=== PATIENT | female | born 1995 | race Caucasian/White ===

== ENCOUNTER 2021-06-11 19:46 | Emergency (ER) | payer OTHER, SELFPAY ==
[2021-06-11 20:04] VITALS: BP 116/67; PULSE 84; RESP 15; TEMP 36.8; O2SAT 99; BMI 25.8
--- NOTE | 2021-06-11 20:33 | PC.NURSE ---
MD Allen at bedside w/ US, movement noted, FHR approx 137 per
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
== END 2021-06-11 20:49 | disposition home or self-care (01) ==
LOC: HO.ED 20:44
PROVIDERS: Emergency Provider Internal Medicine
DX: Z04.1 Encounter for examination and observation following transport accident (principal)
CPT/HCPCS: 99283

== ENCOUNTER 2021-08-01 12:31 | Outpatient (REF) | payer OTHER, SELFPAY ==
[2021-08-01 13:04] LABS: Basophils Percent Auto 0.3 % (0-2); Eosinophils Absolute Auto 0.1 X10*3/uL (0.0-0.4); Eosinophils Percent Auto 1.8 % (0-4); Hematocrit 32.1 % (37.0-47.0); Hemoglobin 10.8 g/dl (12.0-16.0); Imm Gran Abs Auto 0.03 X10*3/uL (0.00-0.03); Imm Gran Pct Auto 0.4 % (0.0-0.4); Lymphocytes Absolute Auto 1.7 X10*3/uL (1.2-4.9); Lymphocytes Percent Auto 20.9 % (20-40); MANUAL DIFF FLAG NO; Mean Corpuscular HGB Conc 33.6 g/dl (31.0-35.0); Mean Corpuscular Hemoglobin 32.6 pg (27.0-33.0); Mean Platelet Volume 9.5 fL (9.4-12.3); Monocytes Absolute Auto 0.4 X10*3/uL (0.1-1.2); Monocytes Percent Auto 5.4 % (2-11); Neutrophils Absolute Auto 5.7 x10*3/uL (2.0-8.3); Neutrophils Percent Auto 71.2 % (45-73); Platelet Count 167 X10*3/uL (160-400); Red Blood Count 3.31 X10*6/uL (4.20-5.50); Red Cell Distribution Width 13.5 % (11.0-16.0)
[2021-08-01 14:19] LABS: Folate > 20.0 ng/mL (> or = 4.0); Vitamin B12 335 pg/mL (200-900)
[2021-08-01 14:20] LABS: Alanine Aminotransferase 18 U/L (0-31); Albumin Level 3.5 g/dL (3.5-5.0); Alkaline Phosphatase 77 U/L (39-117); Anion Gap 9 (12-20); Aspartate Amino Transferase 24 U/L (5-31); Bilirubin Total 0.4 mg/dL (0.0-1.0); Blood Urea Nitrogen 7 mg/dL (9-16); Calcium 8.7 mg/dL (8.4-10.2); Carbon Dioxide 25 mmol/L (22-29); Chloride 109 mmol/L (96-108); Estimated Glomerular Filt Rate > 60; Glucose Random 88 mg/dL (60-115); Potassium 3.6 mmol/L (3.3-5.1); Sodium 139 mmol/L (135-145)
[2021-08-01 14:31] LABS: TSH reflex Free T4 0.21 uIU/mL (0.32-4.0)
[2021-08-01 15:31] LABS: Free T4 (Free Thyroxine) 0.78 ng/dL (0.71-1.85)
[2021-08-05 13:16] LABS: Vitamin D 25-OH, D2 <4 ng/mL; Vitamin D 25-OH, D3 34 ng/mL; Vitamin D 25-OH, Total 34 ng/mL (30-100)
== END 2021-08-01 12:32 | disposition home or self-care (01) ==
LOC: HO.LAB 12:31
PROVIDERS: PCP Nurse Practitioner Acute Care; Visit Provider Nurse Practitioner Acute Care
DX: Z76.89 Persons encountering health services in other specified circumstances (principal); Z13.29 Encounter for screening for other suspected endocrine disorder
CPT/HCPCS: 36415; 80053; 82306; 82607; 82746; 84439; 84443; 85025

== ENCOUNTER 2021-11-09 12:35 | Outpatient (REF) | payer OTHER, SELFPAY ==
[2021-11-09 13:06] LABS: MANUAL DIFF FLAG NO
[2021-11-09 13:41] LABS: Basophils Percent Auto 0.5 % (0-2); Eosinophils Absolute Auto 0.1 X10*3/uL (0.0-0.4); Eosinophils Percent Auto 1.4 % (0-4); Hematocrit 38.8 % (37.0-47.0); Hemoglobin 12.5 g/dl (12.0-16.0); Imm Gran Abs Auto 0.01 X10*3/uL (0.00-0.03); Imm Gran Pct Auto 0.2 % (0.0-0.4); Lymphocytes Absolute Auto 1.9 X10*3/uL (1.2-4.9); Lymphocytes Percent Auto 29.5 % (20-40); Mean Corpuscular HGB Conc 32.2 g/dl (31.0-35.0); Mean Corpuscular Hemoglobin 30.1 pg (27.0-33.0); Mean Corpuscular Volume 93.5 fL (80.0-98.0); Mean Platelet Volume 9.9 fL (9.4-12.3); Monocytes Absolute Auto 0.3 X10*3/uL (0.1-1.2); Monocytes Percent Auto 4.3 % (2-11); Neutrophils Absolute Auto 4.1 x10*3/uL (2.0-8.3); Neutrophils Percent Auto 64.1 % (45-73); Platelet Count 206 X10*3/uL (160-400); Red Blood Count 4.15 X10*6/uL (4.20-5.50); Red Cell Distribution Width 11.7 % (11.0-16.0); White Blood Count 6.3 X10*3/uL (4.8-10.8)
[2021-11-09 14:14] LABS: Alanine Aminotransferase 12 U/L (0-31); Albumin Level 4.6 g/dL (3.5-5.0); Alkaline Phosphatase 49 U/L (39-117); Anion Gap 11 (12-20); Aspartate Amino Transferase 14 U/L (5-31); Bilirubin Total 0.3 mg/dL (0.0-1.0); Blood Urea Nitrogen 9 mg/dL (9-16); Calcium 9.6 mg/dL (8.4-10.2); Carbon Dioxide 28 mmol/L (22-29); Chloride 107 mmol/L (96-108); Estimated Glomerular Filt Rate > 60; Glucose Random 100 mg/dL (60-115); Potassium 4.5 mmol/L (3.3-5.1); Sodium 141 mmol/L (135-145); Total Protein 7.3 g/dL (6.5-8.0)
[2021-11-09 14:36] LABS: TSH reflex Free T4 0.38 uIU/mL (0.32-4.0)
[2021-11-10 03:21] LABS: CT PCR NOT DETECTED (Not Detect.); NG PCR NOT DETECTED (Not Detect.)
[2021-11-10 04:24] LABS: HIV AB/AG Nonreactive (Nonreactive); HIV Num 1 0.08 S/CO (0.00-0.99); ~Hepatitis C Antibody Nonreactive (Nonreactive)
[2021-11-10 10:55] LABS: BV Int Neg Control Negative (Negative); BV Int Pos Control Positive (Positive)
[2021-11-17 16:47] LABS: Thyrotropin Receptor Antibody <1.00 IU/L (<=2.00)
== END 2021-11-09 12:36 | disposition home or self-care (01) ==
LOC: HO.LAB 12:35
PROVIDERS: Absent Provider Nurse Practitioner Acute Care; PCP Nurse Practitioner Acute Care; Visit Provider Nurse Practitioner Family
DX: O99.019 Anemia complicating pregnancy, unspecified trimester (principal); D50.9 Iron deficiency anemia, unspecified; R79.89 Other specified abnormal findings of blood chemistry
CPT/HCPCS: 36415; 80053; 83520; 84443; 85025; 86803; 87389; 87480; 87491; 87510; 87591; 87660

== ENCOUNTER 2022-02-14 15:48 | Outpatient (REF) | payer OTHER, SELFPAY ==
[2022-02-14 17:31] LABS: Appearance Urine Clear; Color Urine Yellow; Glucose Urine UA Negative (Negative); Leukocyte Esterase Urine Negative (Negative); Nitrite Urine Negative (Negative); PH 6.5 (5.0-8.0); Urine Blood Negative (Negative); Urine Ketones Negative (Negative); Urine Protein Trace mg/dL (Neg-Trace)
== END 2022-02-14 15:49 | disposition home or self-care (01) ==
LOC: HO.LAB 15:48
PROVIDERS: Visit Provider Physician Assistant
DX: R30.0 Dysuria (principal)
CPT/HCPCS: 81003

== ENCOUNTER 2023-06-12 14:30 | Outpatient (AMB) | payer OTHER, SELFPAY ==
[2023-06-12 15:22] VITALS: BP 112/70
--- NOTE | 2023-06-12 15:22 | MHC.OFFWIV ---
Intake Vital Signs 06/12/23 15:22 Height 5 ft 6 in BP 112/70 Blood Pressure Location Rt brachial Position Sitting Intake Visit Reasons: EST/uti? (lobby) Intake Note: pt is here for c/o possible uti, unable to get oxygen read due to long nails Patient Tobacco Use Status: Never used Tobacco Allergies shrimp [SHRIMP] Allergy (Severe, Verified 11/09/21 12:03) SWELLING shrimp Allergy (Unknown, Uncoded 09/07/21 08:53) Swelling Do you need a note to return to daycare/school/sports/work: Yes HPI HPI Comments History of Present Illness Details Pt has new sexual partner Unprotected intercourse 3 weeks ago Hasnt felt the same Slight dysuria No frequency or urgency + vaginal discharge but feels different than baseline No smell or discoloration No abdominal pain or other complaints PFSH Medical History Iron deficiency anemia during and not yet delivered in third trimester Surgical History History of Hx of cholecystectomy Family History Mother COPD (chronic obstructive pulmonary disease) Active asthma Father Previous back surgery Social History Housing: House Alcohol intake: current Alcohol intake frequency: does not drink Patient Tobacco Use Status: Never used Tobacco e-Cigarette/Vaping Use: Never Used Second Hand Smoke Exposure: No service: No Current occupational status: unemployed Cognitive needs: No Hearing needs: No Vision needs: No Review of Systems Const Denies chills and Denies fever(s) Card Denies chest pain and Denies dyspnea Resp Denies dyspnea GI Denies abdominal pain Reports dysuria (minimum), Denies urinary incontinence, Denies urinary urgency and Reports vaginal discharge Physical Exam Vital Signs: Last Vital Signs BP 112/70 06/12/23 15:22 General: Non-toxic, NAD. Speaking full sentences. Skin: Warm dry throughout Abdominal: Non-tender. BS present. MSK: Full ROM extremities. Neurology: A/O. No aphasia or facial droop. Gait without abnormality Psych: Good mood and affect Results AMB Urinalysis, Automated UA Leukoctes 0 Katarina/uL Last Edit by Gurpreet Conteh CMA on 06/12/23 15:37 UA Nitrite Negative Last Edit by Gurpreet Conteh CMA on 06/12/23 15:37 UA Urobilinogen 0.2 mg/dL Last Edit by Gurpreet Conteh CMA on 06/12/23 15:37 UA Protein 15 mg/dL Last Edit by Gurpreet Conteh CMA on 06/12/23 15:37 UA pH 5.5 Last Edit by Gurpreet Conteh CMA on 06/12/23 15:37 UA Blood 0 Chidi/uL Last Edit by Gurpreet Conteh CMA on 06/12/23 15:37 UA Specific [place] 1.030 Last Edit by Gurpreet Conteh CMA on 06/12/23 15:37 UA Ketone Positive Last Edit by Gurpreet Conteh CMA on 06/12/23 15:37 UA Bilirubin 0 mg/dL Last Edit by Gurpreet Conteh CMA on 06/12/23 15:37 UA Glucose 0 mg/dL Last Edit by Gurpreet Conteh CMA on 06/12/23 15:37 AMB Test Urine AMB Test Urine Negative Last Edit by Gurpreet Conteh CMA on 06/12/23 16:01 Results Reviewed Results Reviewed: Laboratory Last Values Urine pH (Auto) 5.5 06/12/23 15:36 Specific [place] (Auto) 1.030 06/12/23 15:36 Urine Protein (Auto) 15 mg/dL 06/12/23 15:36 Glucose (UA)(Auto) 0 mg/dL 06/12/23 15:36 Urine Ketones (Auto) Positive 06/12/23 15:36 Urine Blood (Auto) 0 Chidi/uL 06/12/23 15:36 Urine Nitrite (Auto) Negative 06/12/23 15:36 Urine Bilirubin (Auto) 0 mg/dL 06/12/23 15:36 Urine Urobilinogen (Auto) 0.2 mg/dL 06/12/23 15:36 Leukocyte Esterase (Auto) 0 Katarina/uL 06/12/23 15:36 Tst Clinic Negative 06/12/23 16:00 Assessment & Plan Assessment & Plan (1) Unprotected sexual intercourse: Code(s): Z72.51 - High risk heterosexual behavior Plan: Urine negative U/a: no leuks or blood or nitrates Swab obtained for r/o BV Pt will come back for GC/chlamydia urine and blood tests tomorrow (had to leave to get child) Orders: Orders Bacterial Vaginosis Panel Today Z72.51 - High risk heterosexual behavior CT NG by PCR Today Z72.51 - High risk heterosexual behavior RPR Monitor reflex titer Today AMB HCG Urine Test Today Z13.9 - Encounter for screening, unspecified AMB Urinalysis Automated Today Z13.9 - Encounter for screening, unspecified AMB HCG Urine Test Today Z72.51 - High risk heterosexual behavior HIV Ab/Ag Today Z72.51 - High risk heterosexual behavior Coding Level of Care Code Est Pt Level 3 (28191) Diagnoses Unprotected sexual intercourse Z72.51
== END 2023-06-12 16:31 | disposition home or self-care (01) ==
PROVIDERS: PCP Nurse Practitioner Family; Visit Provider Physician Assistant
DX: Z72.51 High risk heterosexual behavior (principal)
CPT/HCPCS: 81003; 81025; 99213

== ENCOUNTER 2023-06-12 16:31 | Outpatient (REF) | payer OTHER, SELFPAY ==
[2023-06-14 13:44] LABS: BV Int Neg Control Negative (Negative); BV Int Pos Control Positive (Positive)
== END 2023-06-12 16:32 | disposition home or self-care (01) ==
LOC: HO.LAB 16:31
PROVIDERS: Visit Provider Physician Assistant
DX: Z72.51 High risk heterosexual behavior (principal)
CPT/HCPCS: 87480; 87510; 87660

== ENCOUNTER 2023-06-13 11:39 | Outpatient (REF) | payer OTHER, SELFPAY ==
[2023-06-14 07:43] LABS: HIV AB/AG Nonreactive (Nonreactive); HIV Num 1 0.05 S/CO (0.00-0.99)
[2023-06-14 11:27] LABS: RPR Rapid Plasma Reagin NON-REACTIVE (NON-REACTIVE)
== END 2023-06-13 11:40 | disposition home or self-care (01) ==
LOC: HO.HMGCLDS 11:39
PROVIDERS: Visit Provider Physician Assistant
DX: Z11.4 Encounter for screening for human immunodeficiency virus [HIV] (principal); Z72.51 High risk heterosexual behavior
CPT/HCPCS: 36415; 86592; 87389

== ENCOUNTER 2024-01-21 10:26 | Outpatient (AMB) | payer OTHER, SELFPAY ==
--- NOTE | 2024-01-21 10:27 | A.OFFPC_ITS ---
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 In review of the notes, patient was seen in walk-in clinic 05/2023 underwent STI as well as testing which was negative. Patient states she has been having copius white/monreal malodorous vaginal discharge for two weeks. Has also been having vaginal and uterine cramping for the past two weeks which happen 2-3 daily. She was sexually active two months ago with the same partner and the sex was unprotected. Denies any concern for STIs at this time and last menses was last month. Has also been having pain with urination without burning or increased frequency. Does not regularly see OBGYN. Denies any vaginal bleeding. [facility], LAT[facility] Medical History Iron deficiency anemia during and not yet delivered in third trimester Surgical History History of Hx of cholecystectomy Family History Mother COPD (chronic obstructive pulmonary disease) Active asthma Father Previous back surgery Social History Housing: House Alcohol intake: current Alcohol intake frequency: does not drink Patient Tobacco Use Status: Never used Tobacco e-Cigarette/Vaping Use: Never Used Second Hand Smoke Exposure: No service: No Current occupational status: unemployed Cognitive needs: No Hearing needs: No Vision needs: No Questionnaire Thrive Questionnaire Date Thrive assessed: 07/26/21 AUDIT C Alcohol Use Questionnaire (AUDIT-C) 1. How often do you have a drink containing alcohol?: Never 3. How often do you have six or more drinks on one occasion?: Never Total Score: 0 XOCHITL-7 AMB Questionnaire XOCHITL-7 Date XOCHITL - 7 assessed: 07/26/21 Source: Developed by Drs. Arpan Almodovar, Deirdre Humphries, Tom Baldwin and colleagues, with an educational yunier from [employer]. Review of Systems Const Denies body aches, Denies chills, Denies fever(s), Denies headache(s) and Denies poor appetite Eyes Reports no additional complaints ENT Denies dysphagia, Denies dizziness, Denies headache(s) and Denies odynophagia Card Denies chest pain, Denies syncope, Denies edema, Denies irregular heart rhythm, Denies lightheadedness and Denies dyspnea Resp Denies cough and Denies dyspnea GI Denies abdominal pain, Denies constipation, Denies dysphagia, Denies diarrhea, Denies nausea, Denies odynophagia and Denies vomiting Details: pain and cramping in suprapubic area Denies abnormal vaginal bleeding, Denies hematuria, Reports dyspareunia, Reports dysuria and Reports vaginal discharge (monreal/white with strong odor ) Musc Reports no additional complaints and Denies abnormal gait Skin/Breast Reports system reviewed and no additional complaints, except as documented Neuro Denies abnormal gait, Denies dizziness, Denies syncope and Denies headache(s) Psych Reports no additional complaints Physical exam (Primary Care) Vital Signs: Last Vital Signs Pulse 81 01/21/24 10:28 BP 92/64 01/21/24 10:28 Pulse Ox 98 01/21/24 10:28 Oxygen Delivery Method Room Air 01/21/24 10:28 BMI result Body Mass Index 21.6 Tobacco/Smoking Status: Tobacco use Status Tobacco use date assessed 01/21/24 01/21/24 10:28 Patient Tobacco Use Status Never used Tobacco 01/21/24 10:28 e-Cigarette/Vaping Use Never Used 01/21/24 10:28 Thrive Assessment: Date of Thrive Assessment Date Thrive assessed 07/26/21 01/21/24 10:28 Const General: cooperative, healthy appearing, comfortable and no acute distress Orientation/consciousness: patient oriented x3 HENCA Head: Yes normocephalic Ears: hearing grossly normal bilaterally General nose exam: Normal external nose present Eyes General: appearance normal, both eyes and all related structures Conjunctivae: conjunctivae normal Neck Neck: Yes full ROM and Yes no lymphadenopathy Resp Effort & Inspection: normal respiratory effort Auscultation: clear to auscultation bilaterally, no crackles, no rales, no rhonchi and no wheezes Cardio Rate: regular rate Rhythm: regular rhythm GI Other: pain to palpation over suprapubic area Palpation (GI): Soft to palpation, no guarding, not rigid and no masses General: Yes no CVA tenderness External Female Exam: normal external appearance Speculum Exam - Vagina: abnormal vaginal discharge monreal and no lesions Back/Spine/Pelvis Back: no CVA tenderness Skin General skin exam: no rashes or lesions noted Neuro General: patient oriented x3 Gait exam (Neuro): Normal gait present Extrem General: Yes normal to inspection, Yes full ROM and No edema Psych Affect: normal affect Attitude: cooperative Insight: Good insight present (Psych) Judgement: Good judgement present (Psych) Results AMB Urinalysis, Automated UA Leukoctes 0 Katarina/uL Last Edit by IDANIA Reyez on 01/21/24 11:25 UA Nitrite Negative Last Edit by IDANIA Reyez on 01/21/24 11:25 UA Urobilinogen 0.2 mg/dL Last Edit by IDANIA Reyez on 01/21/24 11:25 UA Protein 15 mg/dL Last Edit by IDANIA Reyez on 01/21/24 11:25 UA pH 7.0 Last Edit by IDANIA Reyez on 01/21/24 11:25 UA Blood 80 Chidi/uL Last Edit by IDANIA Reyez on 01/21/24 11:25 UA Specific [place] 1.015 Last Edit by IDANIA Reyez on 01/21/24 11:25 UA Ketone Negative Last Edit by IDANIA Reyez on 01/21/24 11:25 UA Bilirubin 0 mg/dL Last Edit by IDANIA Reyez on 01/21/24 11:25 UA Glucose 0 mg/dL Last Edit by IDANIA Reyez on 01/21/24 11:25 AMB Test Urine AMB Test Urine Cancelled Last Edit by Breann Morrison CMA on 01/21/24 11:32 AMB Test Urine previously reported as Negative Breann Morrison 01/21/24 11:32 CANCELLED Entered into order. Results Reviewed Results Reviewed: Laboratory Last Values Urine pH (Auto) 7.0 01/21/24 11:13 Specific [place] (Auto) 1.015 01/21/24 11:13 Urine Protein (Auto) 15 mg/dL 01/21/24 11:13 Glucose (UA)(Auto) 0 mg/dL 01/21/24 11:13 Urine Ketones (Auto) Negative 01/21/24 11:13 Urine Blood (Auto) 80 Chidi/uL 01/21/24 11:13 Urine Nitrite (Auto) Negative 01/21/24 11:13 Urine Bilirubin (Auto) 0 mg/dL 01/21/24 11:13 Urine Urobilinogen (Auto) 0.2 mg/dL 01/21/24 11:13 Leukocyte Esterase (Auto) 0 Katarina/uL 01/21/24 11:13 Tst Clinic Negative 01/21/24 11:13 Assessment and Plan Assessment & Plan (1) Vaginal discharge: Code(s): N89.8 - Other specified noninflammatory disorders of vagina Plan: Swab ordered to test for BV, ghonorrhea, Trichomonas and chlamydia. Patient had scant monreal/white discharge visualized on exam today. Given symptoms and physical exam will treat with course of Metronidazole while we wait for swab results. Will call with results and if swab is negative can discontinue treatment. She denies any vaginal bleeding however after self swabbing today patient did have scant blood on swab. (2) Uterine cramping: Code(s): N94.89 - Other specified conditions associated with female genital organs and menstrual cycle Plan: Patient has been having new onset vaginal and uterine cramping with tenderness to palpation over suprapubic area. Patient will be referred to OBGYN to establish care and evaluate cramping. UA and done in office today which were WNL. Pelvic ultrasound ordered. (3) Hematuria: Code(s): R31.9 - Hematuria, unspecified Plan: Patient did have blood on urinalysis today. This may be from cross contamination with vaginal bleeding. Ordered repeat urinalysis to be completed next week to rule out hematuria. Plan This note was constructed using voice recognition software. While every effort has been made to ensure accuracy and french professor, still areas may have been included sometimes these areas may affect the content or meeting of the given symptoms. Total time spent caring for the patient today was 45 minutes. This includes time spent before the visit reviewing the chart, time spent during the visit, and time spent after the visit and documentation. Orders: Orders UA w Microscopic Today R31.9 - Hematuria, unspecified US pelvic complete Today N94.89 - Other specified conditions associated with female genital organs and menstrual cycle Bacterial Vaginosis Panel Today N89.8 - Other specified noninflammatory disorders of vagina Trichomonas vaginalis RNA Today N89.8 - Other specified noninflammatory disorders of vagina CT NG by PCR Today N89.8 - Other specified noninflammatory disorders of vagina AMB Urinalysis Automated Today N94.89 - Other specified conditions associated with female genital organs and menstrual cycle Referrals [employer] Referral N89.8 - Other specified noninflammatory disorders of vagina, N94.89 - Other specified conditions associated with female genital organs and menstrual cycle Medications: New metronidazole 500 mg PO BID 7 days 14 tabs 0RF Coding Level of Care Code Est Pt Level 4 (11077) Diagnoses Vaginal discharge N89.8 Uterine cramping N94.89 Hematuria R31.9
[2024-01-21 10:28] VITALS: BP 92/64; PULSE 81; O2SAT 98; BMI 21.6
== END 2024-01-21 12:06 | disposition home or self-care (01) ==
PROVIDERS: PCP Nurse Practitioner Family
DX: N89.8 Other specified noninflammatory disorders of vagina (principal); N94.89 Other specified conditions associated with female genital organs and menstrual cycle; R31.9 Hematuria, unspecified
CPT/HCPCS: 81003; 99214

== ENCOUNTER 2024-01-21 16:35 | Outpatient (REF) | payer OTHER, SELFPAY ==
[2024-01-22 11:55] LABS: CT PCR NOT DETECTED (Not Detect.); NG PCR NOT DETECTED (Not Detect.)
[2024-01-22 13:31] LABS: Bacterial Vaginosis PCR POSITIVE (Negative); Candida Group PCR NOT DETECTED (Not Detect); Candida glab krusei PCR NOT DETECTED (Not Detect); Trichomonas vaginalis PCR NOT DETECTED (Not Detect)
== END 2024-01-21 16:36 | disposition home or self-care (01) ==
LOC: HO.LNP 16:35
DX: N89.8 Other specified noninflammatory disorders of vagina (principal)
CPT/HCPCS: 0352U; 87491; 87591

== ENCOUNTER 2024-01-21 16:51 | Outpatient (REF) | payer OTHER, SELFPAY | END 2024-01-21 16:52 | disposition home or self-care (01) | LOC: HO.LAB 16:51 | DX: Z13.89 Encounter for screening for other disorder (principal) ==

== ENCOUNTER 2024-02-11 10:17 | Outpatient (AMB) | payer OTHER, SELFPAY ==
[2024-02-11 10:25] VITALS: BP 120/70; BMI 22.3
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
== END 2024-02-11 11:01 | disposition home or self-care (01) ==
LOC: HO.HWSM 10:17
PROVIDERS: PCP Nurse Practitioner Family; Visit Provider Advanced Practice Midwife
DX: Z01.419 Encounter for gynecological examination (general) (routine) without abnormal findings (principal); N89.8 Other specified noninflammatory disorders of vagina; N94.89 Other specified conditions associated with female genital organs and menstrual cycle; Z72.51 High risk heterosexual behavior
CPT/HCPCS: 99385

== ENCOUNTER 2024-02-11 10:17 | Outpatient (REF) | payer OTHER, SELFPAY ==
[2024-02-12 11:38] LABS: CT PCR NOT DETECTED (Not Detect.); NG PCR NOT DETECTED (Not Detect.)
[2024-02-12 11:43] LABS: Bacterial Vaginosis PCR NEGATIVE (Negative); Candida Group PCR DETECTED (Not Detect); Candida glab krusei PCR NOT DETECTED (Not Detect); Trichomonas vaginalis PCR NOT DETECTED (Not Detect)
== END 2024-02-11 10:18 | disposition home or self-care (01) ==
LOC: HO.LAB 10:17
PROVIDERS: PCP Nurse Practitioner Family; Visit Provider Advanced Practice Midwife
DX: N89.8 Other specified noninflammatory disorders of vagina (principal); Z11.2 Encounter for screening for other bacterial diseases; Z72.51 High risk heterosexual behavior; Z94.89 Other transplanted organ and tissue status; Z01.419 Encounter for gynecological examination (general) (routine) without abnormal findings; Z12.4 Encounter for screening for malignant neoplasm of cervix
CPT/HCPCS: 0352U; 36415; 87491; 87591; 87625; 88175; 99385

== ENCOUNTER 2024-02-17 12:45 | Outpatient (REF) | payer OTHER, SELFPAY ==
--- NOTE | ~2024-02-17 | US_ITS ---
EXAMINATION: US PELVIS CLINICAL INFORMATION: Uterine cramping COMPARISON: None available. TECHNIQUE: Ultrasound of the pelvis is performed using both transabdominal and transvaginal transducers along with Doppler. Transvaginal imaging is performed due to inadequate visualization transabdominally. The images were presented to me for review on 04/03/2024. FINDINGS: Uterus: The uterus is anteverted and measures 8.5 x 4.5 x 5.5 cm. The double wall endometrial thickness is 11 mm. The uterus is smooth in contour and has normal myometrial echogenicity. No visible fibroid. Incidental nabothian cysts are seen in the cervix. Adnexa: Both ovaries are visualized. There is normal color flow to the adnexa. There is no ovarian torsion. There is no pelvic ascites or fluid collection. Right ovary measures 3.5 x 2.2 x 2.4 cm, 9.6 mL. A small collapsing follicle measures 1.6 cm in size and does not require follow-up. Left ovary measures 2.9 x 1.8 x 1.7 cm, 4.7 mL. No abnormality demonstrated. US/US pelvic and transvaginal IMPRESSION: Normal pelvic ultrasound. Electronically signed by: Alan Baker MD 04/03/2024 01:43 PM EDT
== END 2024-02-17 12:46 | disposition home or self-care (01) ==
LOC: HO.US 12:45
PROVIDERS: PCP Nurse Practitioner Family
DX: N94.89 Other specified conditions associated with female genital organs and menstrual cycle (principal)
CPT/HCPCS: 76830; 76856

== ENCOUNTER 2024-09-23 10:09 | Outpatient (AMB) | payer OTHER, SELFPAY ==
--- NOTE | 2024-09-23 10:19 | A.OFFPC_ITS ---
Vital Signs 09/23/24 10:21 Height 5 ft 4 in Weight 129 lb 2 oz BMI 22.2 BP 110/60 Blood Pressure Location Lt brachial Position Sitting Pulse 93 Pulse Source Pulse Oximeter Temp 97.3 F Temp Source Temporal Artery Scan Pulse Oximetry (%) 98 Oxygen Delivery Method Room Air Intake Visit Reasons: annual exam Intake Note: Patient is here today for a physical. Requesting for STI testing. Manager Sterile Required: No Wildlife Biostation Research Ecologist: Not Required per policy Accompanied by: Self / Same As Patient Allergies shrimp [SHRIMP] Allergy (Severe, Verified 09/23/24 10:33) SWELLING shrimp Allergy (Unknown, Uncoded 09/23/24 10:33) Swelling Medication List - Last Reconciled 09/23/24 by Marilu Lemons PA-C levonorgestrel 1.5 mg PO ONCE Tobacco use date assessed: 09/23/24 Dental Screening Dental Screen Date: 09/23/24 Did you have a dental visit in the last 12 months?: Yes Did you have a dental problem in the last 6 months where you did not have access to dental care?: No Was dental information given to patient?: Patient has dentist HPI annual exam HPI Details 28-year-old female with past medical his tory of iron-deficiency anemia last seen 12/2023 coming in for annual exam.? Presenting for an annual wellness examination with concerns about potential allergies, vision difficulties, family planning, and STD screening. Utilizes Plan B intermediately, causing alteration in menstrual timing, leading to anxiety and requests for alternative long-term family planning other than standard hormonal contraceptives. STD screening requested due to occasional unprotected intercourse, despite the low frequency of sexual activity, indicating patient interest more in risk avoidance rather than addressing symptomatic concerns. Patient has no acute concerns at this time. [facility] Medical History Iron deficiency anemia during and not yet delivered in third trimester Surgical History History of Hx of cholecystectomy Family History Mother COPD (chronic obstructive pulmonary disease) Active asthma Father Previous back surgery Social History (Reviewed 09/23/24 @ 10:47 by RASHEL Wild Housing: House Alcohol intake: current Alcohol intake frequency: holidays/special occasions only Patient Tobacco Use Status: Never used Tobacco e-Cigarette/Vaping Use: Never Used Second Hand Smoke Exposure: No Substance Use Type: Marijuana service: No Current occupational status: unemployed Cognitive needs: No Hearing needs: No Vision needs: No Female Reproductive History Menstrual Age of Menarche: 16 control method: none Questionnaire PHQ-9 Over the last 2 weeks, how often have you been bothered by any of the following problems? 1. Little interest or pleasure in doing things: not at all 2. Feeling down, depressed, or hopeless: not at all 3. Trouble falling or staying asleep, or sleeping too much: not at all 4. Feeling tired or having little energy: not at all 5. Poor appetite or overeating: not at all 6. Feeling bad about yourself - or that you are a failure or have let yourself or your family down: not at all 7. Trouble concentrating on things, such as reading the newspaper or watching television: not at all 8. Moving or speaking so slowly that other people could have noticed. Or the opposite - being so fidgety or restless that you have been moving around a lot more than usual: not at all 9. Thoughts that you would be better off or of hurting yourself in some way: not at all Total score: 0 Depression Screening Interpretation: Negative Depression Screening Done: Yes Source: Developed by Drs. Arpan Almodovar, Deirdre Humphries, Tom Baldwin and colleagues, with an educational yunier from [employer]. Thrive Questionnaire Date Thrive assessed: 09/23/24 I am a: Patient What is your living situation today?: I have a steady place to live Within the past 12 months, did the food you bought not last and you didn't have the money to get more?: Never true Within the past 12 months, did you worry whether your food would run out before you got money to buy more?: Never true Do you have trouble paying for medicines?: No Do you have trouble getting transportation to medical appointments?: No Do you have trouble paying your heating and electricity bill?: No Do you have trouble taking care of your child, family member or friend?: No Do you have trouble with day-to-day activities such as bathing, preparing meals, shopping, managing finances, etc.?: No Are you currently unemployed and looking for a job?: No Are you interested in more education?: No Please select the resources that you would like help with: None Currently or been in a relationship where the following occur: No concerns reported THRIVE Score: 0 AUDIT C Alcohol Use Questionnaire (AUDIT-C) 1. How often do you have a drink containing alcohol?: Never Total Score: 0 XOCHITL-7 AMB Questionnaire XOCHITL-7 Date XOCHITL - 7 assessed: 09/23/24 Feeling nervous, anxious, or on edge: 3 = Nearly every day Not being able to stop or control worryin = Several days Worrying too much about different things: 1 = Several days Trouble relaxin = Not at all Being so restless that it is hard to sit still: 0 = Not at all Becoming easily annoyed or irritable: 0 = Not at all Feeling afraid as if something awful might happen: 0 = Not at all Total XOCHITL-7 score (0-4 normal; 5-9 mild; 10-14 moderate; 15-21 severe): 5 Source: Developed by Drs. Arpan Almodovar, Deirdre Humphries, Tom Baldwin and colleagues, with an educational yunier from [employer]. XOCHITL-7 Assessment Billing XOCHITL-7 Assessment Tool: XOCHITL-7 Assessment 78607 Review of Systems Const Denies body aches, Denies fatigue, Denies fever(s), Denies frequent falls, Denies headache(s) and Denies weakness Eyes Reports no additional complaints and Denies change in vision ENT Denies dysphagia, Denies dizziness, Denies facial pain, Denies headache(s), D enies nasal congestion and Denies odynophagia Card Denies chest pain, Denies syncope, Denies irregular heart rhythm, Denies leg edema, Denies lightheadedness and Denies dyspnea Resp Denies cough and Denies dyspnea GI Denies constipation, Denies dysphagia, Denies dyspepsia, Denies diarrhea, Denies nausea, Denies odynophagia and Denies vomiting Denies urinary frequency, Denies dysuria, Denies urinary hesitancy and Denies urinary urgency Musc Denies back pain and Denies myalgias Skin/Breast Reports system reviewed and no additional complaints, except as documented Neuro Denies dizziness, Denies syncope, Denies frequent falls, Denies headache(s) and Denies weakness Psych Reports no additional complaints Endo Denies fatigue Physical exam (Primary Care) Vital Signs: Last Vital Signs Temp 97.3 F 09/23/24 10:21 Pulse 93 09/23/24 10:21 BP 110/60 09/23/24 10:21 Pulse Ox 98 09/23/24 10:21 Oxygen Delivery Method Room Air 09/23/24 10:21 BMI result Body Mass Index 22.2 Tobacco/Smoking Status: Tobacco use Status Tobacco use date assessed 09/23/24 09/23/24 10:26 Patient Tobacco Use Status Never used Tobacco 09/23/24 10:26 e-Cigarette/Vaping Use Never Used 09/23/24 10:26 PHQ-9: PHQ-9 Score PHQ-9: Total score 0 09/23/24 10:32 Depression Screening Interpretation: Negative Thrive Assessment: Date of Thrive Assessment Date Thrive assessed 09/23/24 09/23/24 10:26 Currently or been in a relationship where the following occur: No concerns reported Const General: cooperative, healthy appearing, comfortable and no acute distress Orientation/consciousness: patient oriented x3 HENMT Head: Yes normocephalic Ears: hearing grossly normal bilaterally, external ears normal, TM's normal bilaterally and EAC's normal General nose exam: Normal external nose present Face and sinus: Yes normal facial exam and Yes sinuses nontender Mouth: Normal oral and palatal mucosa present and tongue normal Throat: Yes posterior oropharynx normal Eyes General: appearance normal, both eyes and all related structures Conjunctivae: conjunctivae normal Pupils: Equal, round and reactive pupils present EOM: EOMs intact bilaterally and No Nystagmus present Neck Neck: Yes normal visual inspection, Yes full ROM and Yes no lymphadenopathy Chest Chest palpation & inspection: normal inspection of the chest Resp Effort & Inspection: normal respiratory effort Auscultation: clear to auscultation bilaterally, no crackles, no rales, no rhonchi, no wheezes and breath sounds present Cardio Rate: regular rate Rhythm: regular rhythm Peripheral pulses: radial pulses present and dorsalis pedis present GI Inspection: Yes normal to inspection and No Abdominal wall edema Palpation (GI): Soft to palpation, not firm and nontender Auscultation: normal bowel sounds Rectal Exam - Female: deferred General: Yes no CVA tenderness Back/Spine/Pelvis Back: no CVA tenderness Skin General skin exam: no rashes or lesions noted Neuro General: patient oriented x3 Cranial nerves: Yes Equal, round and reactive pupils present, Yes Midline tongue present, Yes Ability to bilaterally elevate shoulders present and No Nystagmus present Gait exam (Neuro): Normal gait present Extrem General: Yes normal to inspection, Yes full ROM, No no pedal edema and No edema Psych Speech and movement: Normal speech and movement present Affect: normal affect Insight: Good insight present (Psych) Judgement: Good judgement present (Psych) Coding Level of Care Code Est Pt Prev Care 18-39y([id number]) Diagnoses Cervical cancer screening Z12.4 Routine screening for STI (sexually transmitted infection) Z11.3 Annual physical exam Z00.00 Seasonal allergies J30.2 Additional Codes XOCHITL-7 Assessment Billing - XOCHITL-7 Assessment Tool: XOCHITL-7 Assessment 02133 ([id number]) Assessment & Plan Assessment & Plan (1) Cervical cancer screening: Comment: 02/11/2024 Pap is negative. Code(s): Z12.4 - Encounter for screening for malignant neoplasm of cervix Category: Medical Plan: Up-to-date on annual Pap smears continue to follow up with gynecology (2) Routine screening for STI (sexually transmitted infection): Code(s): Z11.3 - Encounter for screening for infections with a predominantly sexual mode of transmission Category: Medical Plan: Ordered for blood work and vaginal swab screen for STD. (3) Annual physical exam: Code(s): Z00.00 - Encounter for general adult medical examination without abnormal findings Category: Medical Plan: Patient is up-to-date on all recommended routine screenings and vaccinations for her age. Reminded patient about blood work. Discussed alternative contraceptive options and probable cause of menstrual disruption from Plan B. Underpinning these evaluations is a broad-spectrum health maintenance regimen engaging bloodwork inclusive of thyroid function check. (4) Seasonal allergies: Code(s): J30.2 - Other seasonal allergic rhinitis Category: Medical Plan: Referral was placed to survey data technician today also advised patient to start [id number] allergy medication. Plan This note was constructed using voice recognition software. While every effort has been made to ensure accuracy and electrical technology instructor, still areas may have been included sometimes these areas may affect the content or meeting of the given symptoms. Total time spent caring for the patient today was 30 minutes. This includes time spent before the visit reviewing the chart, time spent during the visit, and time spent after the visit and documentation. Patient was informed and verbally consented to the use of an ambient scribe for clinic note documentation during this visit. Orders: Orders Bacterial Vaginosis Panel Today Z11.3 - Encounter for screening for infections with a predominantly sexual mode of transmission Trichomonas vaginalis RNA Today Z11.3 - Encounter for screening for infections with a predominantly sexual mode of transmission Referrals Allergy & Immunology Referral J30.2 - Other seasonal allergic rhinitis Optometry Referral Z00.00 - Encounter for general adult medical examination without abnormal findings
[2024-09-23 10:21] VITALS: BP 110/60; PULSE 93; TEMP 36.3; O2SAT 98; BMI 22.2
--- OUTSIDE RECORDS SUMMARY | 2024-09-23 11:42 | XMS_ITS | Clinical Summary ---
Author Organization [facility] it Address [address] [place] [address] Care Team Providers Care Orthodontist Vice President Name Role Phone Jaja Preciado MD Primary Care Provider [phone] Surgical History Surgery Date Site/Laterality Comments CHOLECYSTECTOMY 08/2020 PROCEDURE: [place] CHOLECYSTECTOMY TONSILLECTOMY 2016 PROCEDURE: HISTORICAL TONSILLECTOMY SECTION 2021 PROCEDURE: HISTORICAL DELIVERY; COMMENT: at [facility] for suspected uterine rupture- no rupture noted-thin uterine wall noted on u/s Medical History Medical History Date Comments Depression DX:Depression; C OMMENT: Hx of depression. [facility] [place] in the past Anxiety disorder DX:Anxiety diso rder; COMMENT: Hx of anxiety. [facility] [place] in the past Migraine without aura DX:Migrain e without aura Family History Medical History Relation Name Comments Mental illness Brother 1 Due to an acc ident (fell off a merle) No Known Problems Brother 2 No Known Problems Brother 3 No Known Problems Brother 4 No Known Problems Brother 5 No Known Problems Brother 6 No Known Problems Daughter 1 No Known Problems Daughter 2 Bipolar disorder Father Depression Father Liver cancer Father Other Dermatological Disorders Father PTSD No Known Problems Maternal Grandfather No Known Problems Maternal Grandmother Asthma Mother COPD Mother Smoking hx Thyroid disease Mother Other: Other Other Autism. 3 nephe ws,1 niece Colon cancer Paternal Grandfather Other: Gangreen Paternal Grandmother Gang reene Bilateral feet Asthma Sister 1 No Known Problems Sister 2 No Known Problems Sister 3 No Known Problems Sister 4 No Known Problems Sister 5 Breast cancer Neg Hx Ovarian cancer Neg Hx Pancreatic cancer Neg Hx Prostate cancer Neg Hx Uterine cancer Neg Hx Relation Name Status Comments Brother 1 Alive Brother 2 Alive Brother 3 Alive Brother 4 Alive Brother 5 Alive Brother 6 Alive Daughter 1 Alive Daughter 2 Alive Father Alive Maternal Grandfather Maternal Grandmother Mother Alive Other Alive Paternal Grandfather Paternal Grandmother Sister 1 Alive Sister 2 Alive Sister 3 Alive Sister 4 Alive Sister 5 Alive Social History Tobacco Use Types Packs/Day Years Used Date Smoking Tobacco: Never Smokeless Tobacco: Never Alcohol Use Standard Drinks/Week Comments Not Currently 0 (1 standard drink = 0.6 oz pur e alcohol) Comments Unknown Sex and Gender Information Value Date Recorded Sex Assigned at Not on file Legal Sex Female 6:13 PM EST Gender Identity Not on file Sexual Orientation Not on file Obstetrics History Last Filed Vital Signs Vital Sign Reading Time Taken Comments Blood Pressure 98/58 01/23/2023 10:52 AM EDT Pulse 70 01/23/2023 10:52 AM EDT Temperature - - Respiratory Rate - - Oxygen Saturation - - Inhaled Oxygen Concentration - - Weight 60.8 kg (134 lb) 01/23/2023 10:52 AM EDT Height 167.6 cm (5' 6 ) 01/23/2023 10:52 AM EDT Body Mass Index 21.63 01/23/2023 10:52 AM EDT Plan of Treatment Health Maintenance Due Date Last Done Comments Hepatitis B Vaccines (1 of 3 - 19+ 3-dose series) 2015 Depression Screening 06/02/2022 HIV Screening 06/02/2022 Hepatitis C Screening 06/02/2022 Social Influencers of Health Screening 06/02/2022 COVID-19 Vaccine (1 - 2023-2 5 season) 2024 Influenza Vaccine (#1) 2024 08/02/2021 Cervical Cancer Screening: P ap Smear 04/26/2024 04/26/2021 DTaP,Tdap,and Td Vaccines (2 - Td or Tdap) 08/02/2031 08/02/2021 HIB Vaccines Aged Out No longer eligi ble based on patient's age to complete this topic HPV Vaccines Aged Out No longer eligi ble based on patient's age to complete this topic Hepatitis A Vaccines Aged Out No long er eligible based on patient's age to complete this topic IPV Vaccines Aged Out No longer eligi ble based on patient's age to complete this topic MMR Vaccines Aged Out No longer eligi ble based on patient's age to complete this topic Meningococcal ACWY Vaccine Aged Out N o longer eligible based on patient's age to complete this topic Meningococcal B Vacine Aged Out No lo nger eligible based on patient's age to complete this topic Pneumococcal Vaccine: Pediat rics (0 to 5 Years) and At-Risk Patients (6 to 64 Years) Aged Out No longer eligi ble based on patient's age to complete this topic RSV Immunization Patients Un zach 20 months Aged Out No longer eligible b ased on patient's age to complete this topic Varicella Vaccines Aged Out No longer eligible based on patient's age to complete this topic Procedures Procedure Name Priority Date/Time Associated Diagnosis Comments PAP SMEAR Routine 04/26/2021 from Last 3 Months or Most Recently Relevant to Health Maintenance Results * Pap smear (04/26/2021) 04/26/2021 Narrative HISTORICAL TESTING LAB RESULTING AGENCY - 05/15/2021 8:01 AM EST [id number] THINPREP PAP, IMAGED: NEGATIVE FOR SQUAMOUS INTRAEPITHELIAL LESION AND MALIGNANCY . TRICHOMONAS IS PRESENT. NOTE: THE PAP TEST IS A SCREENING TEST WITH AN INHERENT FALSE NEGATIVE RATE. AUTOMATED PRESCREENING OF ALL LIQUID BASED SPECIMENS IS PERFORMED BY THE THINPREP IMAGING SYSTEM UNLESS OTHERWISE STATED. ANGI REGAN(ASCP) (CASE ELECTRONICALLY SIGNED 05 13 2021) ADEQUACY: SATISFACTORY ENDOCERVICAL/TRANSFORMATION ZONE COMPONENT ABSENT. SOURCE: THINPREP PAP HPV IF ASCUS, CERVICAL, IMAGED CLINICAL INFORMATION: HPV IF DIAGNOSIS OF ASCUS. HORMONES, , LMP 01/20/21, Z12.4 Jefe Montes CN LAB CYTOLOGY ORDERABLES Final Result HISTORICAL TESTING LAB RESULTING AGENCY from Last 3 Months or Most Recently Relevant to Health Maintenance Care Teams Orthodontist Vice President Relationship Specialty Start Date End Date Jaja Preciado MD [address] [place] [address] [address] [facility] [place] [address] PCP - General Internal Medicine 11/08/17
== END 2024-09-23 11:05 | disposition home or self-care (01) ==
LOC: HO.HMCH 10:09
DX: Z12.4 Encounter for screening for malignant neoplasm of cervix (principal); Z11.3 Encounter for screening for infections with a predominantly sexual mode of transmission; Z00.00 Encounter for general adult medical examination without abnormal findings; J30.2 Other seasonal allergic rhinitis

== ENCOUNTER 2024-09-23 10:09 | Outpatient (REF) | payer OTHER, SELFPAY ==
[2024-09-23 11:38] LABS: MANUAL DIFF FLAG NO
[2024-09-23 12:08] LABS: Basophils Absolute Auto 0.1 X10*3/uL (0.0-0.2); Basophils Percent Auto 0.6 % (0-2); Eosinophils Absolute Auto 0.2 X10*3/uL (0.0-0.4); Eosinophils Percent Auto 2.4 % (0-4); Hematocrit 37.5 % (37.0-47.0); Hemoglobin 12.5 g/dl (12.0-16.0); Imm Gran Abs Auto 0.02 X10*3/uL (0.00-0.03); Imm Gran Pct Auto 0.2 % (0.0-0.4); Lymphocytes Absolute Auto 2.4 X10*3/uL (1.2-4.9); Lymphocytes Percent Auto 29.2 % (20-40); Mean Corpuscular HGB Conc 33.3 g/dl (31.0-35.0); Mean Corpuscular Hemoglobin 30.6 pg (27.0-33.0); Mean Corpuscular Volume 91.7 fL (80.0-98.0); Mean Platelet Volume 10.1 fL (9.4-12.3); Monocytes Absolute Auto 0.4 X10*3/uL (0.1-1.2); Monocytes Percent Auto 4.4 % (2-11); Neutrophils Absolute Auto 5.2 x10*3/uL (2.0-8.3); Neutrophils Percent Auto 63.2 % (45-73); Platelet Count 180 X10*3/uL (160-400); Red Blood Count 4.09 X10*6/uL (4.20-5.50); Red Cell Distribution Width 13.2 % (11.0-16.0); White Blood Count 8.3 X10*3/uL (4.8-10.8)
[2024-09-23 12:35] LABS: Alanine Aminotransferase 21 U/L (0-31); Albumin Level 4.8 g/dL (3.5-5.0); Alkaline Phosphatase 43 U/L (39-117); Anion Gap 9 (12-20); Aspartate Amino Transferase 21 U/L (5-31); Bilirubin Total 0.5 mg/dL (0.0-1.0); Blood Urea Nitrogen 14 mg/dL (9-16); Calcium 9.5 mg/dL (8.4-10.2); Carbon Dioxide 25 mmol/L (22-29); Chloride 110 mmol/L (96-108); Estimated Glomerular Filt Rate > 60; Glucose Random 87 mg/dL (60-115); Potassium 3.8 mmol/L (3.3-5.1); Sodium 140 mmol/L (135-145); Total Protein 7.4 g/dL (6.5-8.0)
[2024-09-23 12:53] LABS: HBS Num1 1.42 mIU/mL (0-7.99); HBc Num1 0.06 S/CO (0.00-0.79); HBsAGNum1 0.29 S/CO (0.00-0.99); HIV AB/AG Nonreactive (Nonreactive); HIV Num 1 0.09 S/CO (0.00-0.99); Hepatitis B Core Antibody Nonreactive (Nonreactive); Hepatitis B Surface Antigen Negative (Negative); ~Hepatitis B Surface Antibody NONREACTIVE (Nonreactive); ~Hepatitis C Antibody Nonreactive (Nonreactive)
[2024-09-23 12:54] LABS: Free T4 (Free Thyroxine) 0.93 ng/dL (0.71-1.85); TSH reflex Free T4 0.21 uIU/mL (0.32-4.0)
[2024-09-23 13:03] LABS: Vitamin B12 363 pg/mL (200-900)
[2024-09-23 13:52] LABS: Bacterial Vaginosis PCR NEGATIVE (Negative); Candida Group PCR DETECTED (Not Detect); Candida glab krusei PCR NOT DETECTED (Not Detect); Trichomonas vaginalis PCR NOT DETECTED (Not Detect)
[2024-09-26 09:48] LABS: TS Negative Control Passed; TS Panel A 1; TS Panel B 0; TS Positive Control Passed; TSpotTB Negative (Negative)
[2024-09-27 15:37] LABS: Vitamin D 25-OH, D2 <4 ng/mL; Vitamin D 25-OH, D3 13 ng/mL; Vitamin D 25-OH, Total 13 ng/mL (30-100)
== END 2024-09-23 10:10 | disposition home or self-care (01) ==
LOC: HO.LAB 10:09
DX: Z00.00 Encounter for general adult medical examination without abnormal findings (principal); J30.2 Other seasonal allergic rhinitis; Z11.3 Encounter for screening for infections with a predominantly sexual mode of transmission
CPT/HCPCS: 36415; 80053; 81515; 82306; 82607; 82746; 84439; 84443; 85025; 86481; 86704; 86706; 86803; 87340; 87389; 96127; 99395

== ENCOUNTER 2025-02-16 11:54 | Outpatient (AMB) | payer OTHER, SELFPAY ==
[2025-02-16 12:01] VITALS: BP 102/66; PULSE 83; TEMP 37.2; O2SAT 99; BMI 22.1
--- NOTE | 2025-02-16 12:01 | AM.OFFWIN_ITS ---
Intake Vital Signs 02/16/25 12:01 Height 5 ft 4 in Weight 129 lb BMI 22.1 BP 102/66 Blood Pressure Location Lt brachial Position Sitting Pulse 83 Pulse Source Pulse Oximeter Temp 98.9 F Temp Source Oral Pulse Oximetry (%) 99 Oxygen Delivery Method Room Air Intake Visit Reasons: EP pelvic pain, discharge, itch, new partner Intake Note: presents with low abdominal discomfort/pressure, thickened vaginal discharge, internal vaginal itch Patient Tobacco Use Status: Never used Tobacco Allergies shrimp (SHRIMP) Allergy (Severe, Verified 02/16/25 12:08) SWELLING Do you need a note to return to daycare/school/sports/work: No HPI HPI Comments History of Present Illness Details History - The patient is a 29-year-old female pr esenting with vaginal discharge and pelvic discomfort. - She describes the discharge as thick a nd white, with associated pelvic discomfort, occurring after her menstrual cycle last week. - The patient has a history of Trichomon as during a previous and is concerned about possible yeast infection, bacterial vaginosis, or STI. - She denies urinary symptoms and system ic symptoms such as fever or nausea. - Denies malodorous vaginal area. States her labia are red and painful inside , not the outside/labial of the vaginal area. - She has used [id number] treatmen ts previously but seeks a definitive diagnosis and treatment. - New partner 3 months ago, symptoms sta rted recently. Physical Exam General: Cooperative, healthy appearing, comfortable, no acute distress and well developed Orientation: Patient oriented x3 Limitations: No limitations Head: Normal to inspection Ears: Hearing grossly normal bilaterally Nose: Normal External nose present Face and sinus: Normal facial exam Mouth: normal, moist oral mucosa Eyes: Appearance normal, both eyes and all related structures Neck: Normal visual inspection and Yes full ROM Respiratory: Normal respiratory effort and able to speak in complete sentences. Skin: no rashes or lesions noted Neuro: Patient oriented x3 Extremities: moving all extremities normally [facility] Medical History Iron deficiency anemia during and not yet delivered in third trimester Surgical History History of Hx of cholecystectomy Family History Mother COPD (chronic obstructive pulmonary disease) Active asthma Father Previous back surgery Social History Housing: House Alcohol intake: current Alcohol intake frequency: holidays/special occasions only Patient Tobacco Use Status: Never used Tobacco e-Cigarette/Vaping Use: Never Used Second Hand Smoke Exposure: No Substance Use Type: Marijuana service: No Current occupational status: unemployed Cognitive needs: No Hearing needs: No Vision needs: No Female Reproductive History Menstrual Age of Menarche: 16 Review of Systems Const All systems reviewed & are unremarkable except as noted in HPI and below Physical Exam Vital Signs: Last Vital Signs Temp 98.9 F 02/16/25 12:01 Pulse 83 02/16/25 12:01 BP 102/66 02/16/25 12:01 Pulse Ox 99 02/16/25 12:01 Oxygen Delivery Method Room Air 02/16/25 12:01 BMI result Body Mass Index 22.1 Assessment & Plan Assessment & Plan (1) Pelvic pain: Code(s): R10.2 - Pelvic and perineal pain Plan: Patient was informed and verbally consented to the use of an ambient scribe for clinic note documentation during this visit Pelvic Discomfort - This will be addressed in conjunction with the evaluation for vaginal discharge. (2) Vaginal discharge: Code(s): N89.8 - Other specified noninflammatory disorders of vagina Plan: Vaginal Discharge - A BV swab will be performed to test for bacterial vaginosis, Trichomonas, and yeast infection. - A urine test will be conducted to check for gonorrhea and chlamydia. - Results will be communicated and treatment will be based on findings. Orders: Orders Bacterial Vaginosis Panel Today N89.8 - Other specified noninflammatory disorders of vagina, R10.2 - Pelvic and perineal pain CT NG by PCR Urine Today N89.8 - Other specified noninflammatory disorders of v agina Coding Level of Care Code Est Pt Level 3 (74061) Diagnoses Pelvic pain R10.2 Vaginal discharge N89.8
--- OUTSIDE RECORDS SUMMARY | 2025-02-16 13:23 | XMS_ITS | Clinical Summary ---
Author Organization [facility] it Address [address] [place] [address] Care Team Providers Care Scrap Sawyer Name Role Phone Jaja Preciado MD Primary Care Provider [phone] Surgical History Surgery Date Site/Laterality Comments CHOLECYSTECTOMY 08/2020 PROCEDURE: [place] CHOLECYSTECTOM[place] TONSILLECTOMY 2016 PROCEDURE: HISTORICAL TONSILLECTOMY SECTION 2021 PROCEDURE: HISTORICAL DELIVERY; COMMENT: at [facility] for suspected uterine rupture- no rupture noted-thin uterine wall noted on u/s Medical History Medical History Date Comments Depression DX:Depression; C OMMENT: Hx of depression. [facility] in [place] past Anxiety disorder DX:Anxiety diso rder; COMMENT: Hx of anxiety. [facility] [place] [facility] past Migraine without aura DX:Migrain [...] of 3 - 19+ 3-dose series) 2015 HIV Screening 06/02/2022 Hepatitis C Screening 06/02/2022 Social Influencers of Health Screening 06/02/2022 COVID-19 Vaccine (1 - 2023-2 5 season) 2024 Cervical Cancer Screening: P ap Smear 04/26/2024 04/26/2021 Depression Screening 07/01/2024 Influenza Vaccine (#1) 2025 08/02/2021 DTaP,Tdap,and Td Vaccines (2 - Td or [...] age to complete this topic Meningococcal B Vaccine Aged Out No l onger eligible based on patient's age to complete this topic Pneumococcal Vaccine: Pediat rics (0 to 5 Years) and At-Risk Patients (6 to 49 Years) Aged Out No longer eligi ble [...] RESULTING AGENCY - 05/15/2021 8:01 AM EST [id number] THINPREP PAP, IMAGED: NEGATIVE FOR SQUAMOUS INTRAEPITHELIAL [...] Recently Relevant to Health Maintenance Care Teams Scrap Sawyer Relationship Specialty Start Date End Date Jaja Preciado MD [address] [place] [address] [address] [facility] [place] [address] PCP - General Internal Medicine 11/08/17
== END 2025-02-16 12:57 | disposition home or self-care (01) ==
PROVIDERS: Visit Provider Physician Assistant
DX: R10.2 Pelvic and perineal pain (principal); N89.8 Other specified noninflammatory disorders of vagina

== ENCOUNTER 2025-02-16 11:54 | Outpatient (REF) | payer OTHER, SELFPAY ==
[2025-02-16 21:51] LABS: Bacterial Vaginosis PCR POSITIVE (Negative); Candida Group PCR NOT DETECTED (Not Detect); Candida glab krusei PCR NOT DETECTED (Not Detect); Trichomonas vaginalis PCR NOT DETECTED (Not Detect)
[2025-02-17 10:29] LABS: CT PCR Urine NOT DETECTED (Not Detect.); NG PCR Urine NOT DETECTED (Not Detect.)
== END 2025-02-16 11:55 | disposition home or self-care (01) ==
LOC: HO.LAB 11:54
PROVIDERS: Physician Assistant
DX: N89.8 Other specified noninflammatory disorders of vagina (principal); R10.2 Pelvic and perineal pain; Z11.8 Encounter for screening for other infectious and parasitic diseases; Z11.2 Encounter for screening for other bacterial diseases
CPT/HCPCS: 81515; 87491; 87591; 99212